=== PATIENT | male | born 1960 | race Caucasian/White ===

== ENCOUNTER 2018-06-13 09:47 | Emergency (ER) | payer OTHER ==
[~2018-06-13] VITALS: Ht 188 cm; Wt 104.5 kg
[2018-06-13 09:51] VITALS: Ht 188 cm; Wt 104.5 kg
[2018-06-13] MEDS ORDERED: PROTONIX20 MG PO (09:55)
[2018-06-13] MEDS ORDERED: ELIQUIS5 MG PO (09:55)
[2018-06-13] MEDS ORDERED: VITAMIN B-12500 MC1 PO (09:56)
[2018-06-13] MEDS ORDERED: ASCORBIC ACID500 MG PO (09:56)
[2018-06-13] MEDS ORDERED: MULTI-DAY VITAM1 TAB PO (09:56)
[2018-06-13] MEDS ORDERED: BETA BLOCKER (09:57)
[2018-06-13 11:45] VITALS: BP 120/81
== END 2018-06-13 11:45 | disposition home or self-care (01) ==
LOC: EDBD 09:47 → D.ER 09:47
DX: M79.641 Pain in right hand (principal); Z79.01 Long term (current) use of anticoagulants; I48.2 Chronic atrial fibrillation; S09.90XA Unspecified injury of head, initial encounter; W18.30XA Fall on same level, unspecified, initial encounter; Y93.89 Activity, other specified; Y92.019 Unspecified place in single-family (private) house as the place of occurrence of the external cause; R55 Syncope and collapse

== ENCOUNTER 2019-02-06 07:48 | Inpatient (IN) | payer OTHER ==
[~2019-02-06] VITALS: Ht 188 cm; Wt 102.1 kg
[~2019-02-06 07:48] MED LIST: ASCORBIC ACID500 MG PO; BETA BLOCKER; ELIQUIS5 MG PO; MULTI-DAY VITAM1 TAB PO; PROTONIX20 MG PO; VITAMIN B-12500 MC1 PO
--- NOTE | 2019-02-06 08:13 | NUR ---
PT IN GOWN, URINE SPECIMEN COLLECTED AND GIVEN TO LAB; BLOOD DRAW VIA [place]UT[place] AND GIVEN TO LAB; CALL LIGHT WITHIN REACH; FAMILY AT BEDSIDE; PT UPDATED ON PLAN OF CARE AND DELAYS IN CARE;
[2019-02-06 08:25] LABS: CALC OSMOLALITY 273 mosm/kg (275-300); CALCIUM 9.4 mg/dL (8.5-10.1); CARBON DIOXIDE 28.1 mmol/L (21.0-32.0); CHLORIDE - SERUM 96 mmol/L (98-107); GLUCOSE 115 mg/dL (74-106); POTASSIUM - SERUM 4.4 mmol/L (3.5-5.1); SODIUM 135 mmol/L (136-145); UREA NITROGEN 21 mg/dL (7-18); eGFR NON AFRICAN AMERICAN 81 mL/min (90-120)
[2019-02-06 08:33] LABS: ALBUMIN 4.2 g/dL (3.4-5.0); ALKALINE PHOSPHATASE 91 U/L (46-116); ALT (SGPT) 82 U/L (10-68); AMYLASE - SERUM 36 U/L (25-115); BILIRUBIN - TOTAL 1.01 mg/dL (0.2-1.3); LIPASE 194 U/L (73-393); PROTEIN - SERUM 8.5 g/dL (6.4-8.2)
[2019-02-06 08:34] LABS: TROPONIN-I < 0.017 ng/mL (0.000-0.060)
[2019-02-06 08:37] LABS: BASOPHILS 0.3 % (0-2); EOSINOPHILS 1.7 % (0-7); HEMATOCRIT 48.2 % (42.0-54.0); HEMOGLOBIN 16.4 g/dL (13.5-17.5); IMMATURE GRANULOCYTES 0.2 % (0-5); LYMPHOCYTES 17.7 % (15-50); MCH 33.7 pg (26.0-34.0); MEAN PLATELET VOLUME 10.8 fL (7.4-10.4); NEUTROPHILS 70.1 % (40-80); PLATELET COUNT 201 10x3/uL (130-400); RBC 4.87 10x6/uL (4.20-6.10); RDW 12.6 % (11.5-14.5); WBC 10.9 10x3/uL (4.8-10.8)
[2019-02-06 08:42] LABS: APPEARANCE HAZY (CLEAR); BACTERIA FEW /hpf (NEGATIVE); BILIRUBIN NEGATIVE (NEGATIVE); COLOR DK YELLOW (YELLOW); EPITHELIAL CELLS OCC /hpf (0-5); GLUCOSE NEGATIVE (NEGATIVE); KETONE LARGE mg/dL (NEGATIVE); NITRITE NEGATIVE (NEGATIVE); PROTEIN NEGATIVE (NEGATIVE); RED CELLS - URINE OCC /hpf (0-5); UROBILINOGEN NORMAL (NORMAL); WHITE CELLS - URINE NSEEN /hpf (NEGATIVE)
[2019-02-06 10:13] VITALS: BP 149/77
--- NOTE | 2019-02-06 10:15 | NUR ---
PT AWAKE AND ALERT; COLOR WNL FOR RACE; UPDATED ON PLAN OF CARE AND DELAYS IN CARE; REPORTS SOME IMPROVEMENT IN PAIN "BUT IT STILL HURTS."
--- NOTE | 2019-02-06 10:17 | NUR ---
EDP NOTIFIED ABOUT PT'S PAIN. TOLD PT HE WOULD BE ON A STERNMAN PAIN PUMP WHEN HE ARRIVES TO THE FLOOR; PT IS "GOOD" WITH THAT.
--- NOTE | 2019-02-06 11:12 | NUR ---
GAVE REPORT TO PALAK SOLARES IN SBAR FORMAT; ROOM IS CURRENTLY DIRTY; WILL CALL WHEN THE ROOM IS READY;
--- NOTE | 2019-02-06 11:16 | MORECARE ---
CASE MANAGEMENT DISCHARGE SUMMARY PATIENT: GISELLA RIZO UNIT: [id number] ADM DATE: 02/06/19 AGE: 59 : 60 SEX: M ROOM/BED: D.2209 AUTHOR: BRIAN,DOC PHYSICIAN: REFERRING PHYSICIAN: NITESH AGUAYO MD DATE OF SERVICE: 02/06/19 Discharge Plan Patient Name: GISELLA RIZO Facility: [facility]:[place] : 1960 Planned Disposition: Anticipated Discharge Date: 02/08/19 Discharge Date: Expected LOS: 2 Initial Reviewer: [email or web address] Initial Review Date: 02/06/2019 Generated: 02/06/19 12:16 pm DCP- Discharge Planning Updated by [email or web address]: Niru Gonzalez on 02/06/19 10:[address] DC PLAN: Return home with independently. ANTICIPATED DC NEEDS: Denied dc needs. CM met with patient to complete initial dc planning assessment. CM educated patient on the CM role and verbal consent given by patient to complete assessment. CM verified patient's address, phone number, and emergency contact phone numbers. Patient lives at home with his . At discharge patient plans to return home and feels this is a safe discharge. CM discussed availability of home health, rehab services, and medical equipment. Patient denied known discharge needs at this time. Transportation provider at discharge will be his . CM will continue to follow and will assist as needed with dc plans/needs. Niru Gonzalez RN, [facility] DCPIA - Discharge Planning Initial Assessment Updated by [email or web address]: Niru Gonzalez on 02/06/19 11:12 am * Is the patient Alert and Oriented? Yes * How many steps to enter\exit or inside your home? None * PCP Dr. De Leon * Pharmacy [facility] * Preadmission Environment Home with Family * ADLs Independent * Equipment CPAP * Other Equipment CPAP from [facility] * List name and contact numbers for known caregivers / representatives who currently or will assist patient after discharge: Vijaya Gonzalez - - [phone] * Verbal permission to speak to the caregivers and representatives has been obtained from the patient. Yes * Community resources currently utilized None * Additional services required to return to the preadmission environment? No * Can the patient safely return to the preadmission environment? Yes * Has this patient been hospitalized within the prior 30 days at any hospital? No Patient Name: GISELLA RIZO Page [id number] at 1116 All edits/amendments must be made on the electronic document DICTATION DATE: 02/06/191115 MUSIC WRITER: SHERWIN 02/06/191115 RPT#: [id number] DC DATE: STATUS: ADM IN [facility] [address] [place] [address] END OF REPORT
[2019-02-06 12:26] VITALS: BP 127/83; BMI 28.9
--- NOTE | 2019-02-06 13:20 | NUR ---
PATIENT IN BED WITH IV INTACT. NO COMPLAINTS OR SIGNS OF DISTRESS. CALL LIGHT WITHIN REACH.
[2019-02-06 13:25] VITALS: BP 127/83
[2019-02-06 14:30] VITALS: Ht 188 cm; Wt 102.1 kg
[2019-02-06] MEDS ORDERED: BETAPACE160 MG PO (14:48)
[2019-02-06] MEDS ORDERED: MAGNESIUM OXID500 MG PO (14:51)
[2019-02-06] MEDS ORDERED: POTASSIUM99 M1 PO (14:56)
[2019-02-06] MEDS ORDERED: OMEPRAZOLE20 M1 PO (14:56)
[2019-02-06] MEDS ORDERED: TEMAZEPAM30 MG PO (14:57)
--- NOTE | 2019-02-06 15:45 | NUR ---
PATIENT CONCERNED ABOUT RECIEVING HIS MEDICATION. CALLED Courtney GRULLON TO REVIEW AND RESTART.
--- NOTE | 2019-02-06 16:37 | NUR ---
PATIENT IN BED WITH IV INTACT. NO COMPLAINTS OR SIGNS OF DISTRESS.
--- NOTE | 2019-02-06 18:21 | NUR ---
PATIENT BREANNET SOTALOL IS SCHEDULED FOR 2099. SAYS HE HAS A STRICT 7AM 7PM SCHEDULE HE KEEPS AT HOME THAT HIS DOCTOR TOLD HIM TO KEEP. CALLED PHARMACY TO RETIME.
[2019-02-06 20:00] VITALS: BP 151/88
[2019-02-07] VITALS: BP 129/81
[2019-02-07 04:00] VITALS: BP 134/75
[2019-02-07 06:42] LABS: BASOPHILS 0.3 % (0-2); EOSINOPHILS 3.1 % (0-7); HEMATOCRIT 42.1 % (42.0-54.0); IMMATURE GRANULOCYTES 0.3 % (0-5); LYMPHOCYTES 24.1 % (15-50); MCH 33.1 pg (26.0-34.0); MCHC 33.3 g/dL (31.0-37.0); MCV 99.5 fL (80.0-100.0); MEAN PLATELET VOLUME 11.2 fL (7.4-10.4); NEUTROPHILS 63.2 % (40-80); PLATELET COUNT 151 10x3/uL (130-400); RBC 4.23 10x6/uL (4.20-6.10); RDW 12.6 % (11.5-14.5); WBC 6.5 10x3/uL (4.8-10.8)
[2019-02-07 06:55] LABS: ALBUMIN 3.4 g/dL (3.4-5.0); ALKALINE PHOSPHATASE 72 U/L (46-116); ALT (SGPT) 64 U/L (10-68); BILIRUBIN - TOTAL 0.82 mg/dL (0.2-1.3); CALCIUM 8.1 mg/dL (8.5-10.1); CARBON DIOXIDE 25.5 mmol/L (21.0-32.0); CHLORIDE - SERUM 102 mmol/L (98-107); CREATININE - SERUM 0.9 mg/dL (0.6-1.3); GLUCOSE 104 mg/dL (74-106); MAGNESIUM - SERUM 1.6 mg/dL (1.8-2.4); PHOSPHOROUS 3.4 mg/dL (2.5-4.9); PROTEIN - SERUM 6.5 g/dL (6.4-8.2); SODIUM 136 mmol/L (136-145); eGFR NON AFRICAN AMERICAN > 90 mL/min (90-120)
[2019-02-07 06:56] LABS: CALC OSMOLALITY 272 mosm/kg (275-300); UREA NITROGEN 14 mg/dL (7-18)
--- NOTE | 2019-02-07 08:14 | NUR ---
PT SITTING UP AT BEDSIDE, ALERT AND ORIENTED. IV LOCATED TO RIGHT AC RUNNING NS @ 125ML, AND A MORPHINE DUMPER BULK SYSTEM PUMP PRESENT. NO S/S OF DISTRESS AT THIS TIME, DENIES NEEDS, WILL CONT TO MONITOR.
[2019-02-07 08:35] VITALS: BP 135/66
[2019-02-07 16:37] VITALS: BP 175/93
--- NOTE | 2019-02-07 17:22 | NUR ---
PULLED IV OUT, RESITED TO LEFT FOREARM.
--- NOTE | 2019-02-07 19:35 | NUR ---
PT SITTING UP IN BED WITHOUT DISTRESS, AOX4. DENIES NEEDS AT THIS TIME, CL IN REACH, WILL CTM
[2019-02-07 20:00] VITALS: BP 171/96
--- NOTE | 2019-02-07 20:30 | NUR ---
PT REQUESTED FOR THIS NURSE TO REMOVE MORPHINE MOWER MECHANIC AND JUST WANTS TO TAKE NORCO. GAVE NORCO AT THIS TIME, DC'D MOWER MECHANIC. DENIES OTHER NEEDS, CL IN REACH, WILL CTM
--- NOTE | 2019-02-07 21:40 | NUR ---
PT STATES NORCO DID NOT TOUCH PAIN, STATES PAIN IN ABD 6/10. REQUESTED MORPHINE HEEL EMERY BUFFER TO BE RESTARTED. THIS NURSE BEGAN HEEL EMERY BUFFER AND NOTICED LEFT FA IV INFILTRATED. DC'D WITH CATHETER INTACT. RESITED 20G IV RIGHT AC. DENIES OTHER NEEDS. CL IN REACH, WILL CTM
[2019-02-08] VITALS: BP 162/87
[2019-02-08 04:00] VITALS: BP 119/59
[2019-02-08 05:12] LABS: BASOPHILS 0.4 % (0-2); EOSINOPHILS 3.1 % (0-7); HEMATOCRIT 39.5 % (42.0-54.0); HEMOGLOBIN 13.1 g/dL (13.5-17.5); IMMATURE GRANULOCYTES 0.2 % (0-5); LYMPHOCYTES 31.7 % (15-50); MCHC 33.2 g/dL (31.0-37.0); MCV 99.5 fL (80.0-100.0); MEAN PLATELET VOLUME 10.5 fL (7.4-10.4); MONOCYTES 15.3 % (2-11); NEUTROPHILS 49.3 % (40-80); PLATELET COUNT 136 10x3/uL (130-400); RBC 3.97 10x6/uL (4.20-6.10); RDW 12.4 % (11.5-14.5); WBC 5.4 10x3/uL (4.8-10.8)
[2019-02-08 05:39] LABS: CALC OSMOLALITY 275 mosm/kg (275-300); CALCIUM 8.3 mg/dL (8.5-10.1); CARBON DIOXIDE 25.1 mmol/L (21.0-32.0); CHLORIDE - SERUM 104 mmol/L (98-107); CREATININE - SERUM 0.8 mg/dL (0.6-1.3); GLUCOSE 98 mg/dL (74-106); MAGNESIUM - SERUM 1.7 mg/dL (1.8-2.4); PHOSPHOROUS 3.5 mg/dL (2.5-4.9); POTASSIUM - SERUM 3.8 mmol/L (3.5-5.1); SODIUM 139 mmol/L (136-145); eGFR NON AFRICAN AMERICAN > 90 mL/min (90-120)
[2019-02-08 05:41] LABS: UREA NITROGEN 8 mg/dL (7-18)
[2019-02-08 08:11] VITALS: BP 143/77
[2019-02-08 12:37] VITALS: BP 184/91
--- NOTE | 2019-02-08 12:54 | NUR ---
PATIENT RECIEVED RESTING WITH NO NEEDS VOICED. HOPES TO BE DISCHARGED TODAY. TOLERATING FULL LIQUID DIET AND PAIN CONTROLLED WITH NORCO. CL IN REACH
[2019-02-08] MEDS ORDERED: LEVAQUIN750 MG PO ×3 (15:51→16:09)
--- NOTE | 2019-02-08 16:07 | NUR ---
OFFERED PT FLU SHOT. HE DECLINED.
[2019-02-08] MEDS ORDERED: FLAGYL500 MG PO (16:12)
[2019-02-08 16:33] VITALS: BP 187/99
--- NOTE | 2019-02-08 17:16 | NUR ---
IV REMOVED WITH NO REDNESS OR EDEMA AT SITE. DISCHARGE INSTRUCTIONS GIVEN WITH PATIENT VOICING UNDERSTANDING. PATIENT AMBULATED PER HIS REQUEST WITH SPOUSE TO PRIVATE CAR.
--- NOTE | 2019-02-09 12:25 | MORECARE ---
CASE MANAGEMENT DISCHARGE SUMMARY PATIENT: GISELLA RIZO UNIT: [id number] ADM DATE: 02/06/19 AGE: 59 : 60 SEX: M ROOM/BED: D.2209 AUTHOR: BRIAN,DOC PHYSICIAN: REFERRING PHYSICIAN: NITESH AGUAYO MD DATE OF SERVICE: 02/09/19 Discharge Plan Patient Name: GISELLA RIZO Facility: [facility]:[place] : 1960 Planned Disposition: Anticipated Discharge Date: 02/08/19 Discharge Date: 02/08/2019 Expected LOS: 2 Initial Reviewer: [email or web address] Initial Review Date: 02/06/2019 Generated: 02/09/19 1:25 pm DCP- Discharge Planning Updated by [email or web address]: Niru Gonzalez on 02/06/19 10:[address] DC PLAN: Return home with independently. ANTICIPATED DC NEEDS: Denied dc needs. CM met with patient to complete initial dc planning assessment. CM educated patient on the CM role and verbal consent given by patient to complete assessment. CM verified patient's address, phone number, and emergency contact phone numbers. Patient lives at home with his . At discharge patient plans to return home and feels this is a safe discharge. CM discussed availability of home health, rehab services, and medical equipment. Patient denied known discharge needs at this time. Transportation provider at discharge will be his . CM will continue to follow and will assist as needed with dc plans/needs. Niru Gonzalez RN, [facility] DCPIA - Discharge Planning Initial Assessment Updated by [email or web address]: Niru Gonzalez on 02/06/19 11:12 am * Is the patient Alert and Oriented? Yes * How many steps to enter\exit or inside your home? None * PCP Dr. De Leon * Pharmacy [facility] * Preadmission Environment Home with Family * ADLs Independent * Equipment CPAP * Other Equipment CPAP from [facility] * List name and contact numbers for known caregivers / representatives who currently or will assist patient after discharge: Vijaya Gonzalez - - [phone] * Verbal permission to speak to the caregivers and representatives has been obtained from the patient. Yes * Community resources currently utilized None * Additional services required to return to the preadmission environment? No * Can the patient safely return to the preadmission environment? Yes * Has this patient been hospitalized within the prior 30 days at any hospital? No Last DP export: 02/06/19 10:16 Patient Name: GISELLA RZIO Page [phone] at 1225 All edits/amendments must be made on the electronic document DICTATION DATE: 02/09/191224 COMPOSITE ASSEMBLER: SHERWIN 02/09/[birth year] RPT#: [id number] DC DATE:02/08/19 STATUS: DIS IN [facility] [address] [place] [address] END OF REPORT
== END 2019-02-08 17:17 | disposition home or self-care (01) | DRG 392 ==
LOC: D.ER 07:48 → D.MS 10:17
PROVIDERS: Family Medicine; ADMIT Internal Medicine Nephrology; ATTEND Internal Medicine Nephrology
DX: K57.32 Diverticulitis of large intestine without perforation or abscess without bleeding (principal); E87.1 Hypo-osmolality and hyponatremia; I10 Essential (primary) hypertension; K21.9 Gastro-esophageal reflux disease without esophagitis; N40.1 Benign prostatic hyperplasia with lower urinary tract symptoms; R33.8 Other retention of urine; Z79.01 Long term (current) use of anticoagulants